=== PATIENT | female | born 1995 | race American Indian/Alaskan Native ===

== ENCOUNTER 2016-11-25 03:05 | Inpatient (IN) | payer MEDICAID ==
[2016-11-25] MEDS ORDERED: LACTATED RINGERS 1,000 ML IV ONE (03:21)
[2016-11-25] MEDS ORDERED: REGLAN IV ONE (03:54)
[2016-11-25] MEDS ORDERED: PITOCin/NS 20 UNIT/1000ML DRIP 20,000 MILLIUNITS/1,000 ML BAG IV ONE (03:54)
[2016-11-25] MEDS ORDERED: BICITRA PO ONE (03:54)
[2016-11-25] MEDS ORDERED: ANCEF/STERILE WATER 2 GM/20 ML 2 GM/20 ML SYRINGE IV ONE (03:54)
[2016-11-25] MEDS ORDERED: PEPCID IV ONE ×2 (03:54)
[2016-11-25] MEDS ORDERED: BICITRA ONE (03:54)
[2016-11-25] MEDS ORDERED: REGLAN ONE (03:54)
[2016-11-25] MEDS ORDERED: PITOCin/NS 20 UNIT/1000ML DRIP 20 UNITS/1,000 ML BAG IV SCH ×2 (04:00→09:00)
[2016-11-25] MEDS ORDERED: LACTATED RINGERS 1,000 ML IV SCH (04:00)
[2016-11-25] MEDS ORDERED: ANCEF/STERILE WATER 2 GM/20 ML 2 GM/20 ML SYRINGE IV NR (04:00)
[2016-11-25 04:15] LABS: Basophils % (Auto) 0.7 % (0.0-1.8); Eosinophils % (Auto) 1.7 % (0.0-4.3); Hemoglobin 11.8 gm/dl (10.1-14.3); White Blood Count 7.8 K/mm3 (4.5-11.0)
--- NOTE | 2016-11-25 04:16 | Anesthesia Consultation ---
Anesthesia Consult and Med Hx Date of service: 11/25/16 - Airway Anesthetic Teeth Evaluation: Good ROM Head & Neck: Adequate Mental/Hyoid Distance: Adequate Mallampati Class: Class II Intubation Access Assessment: Probably Good - Pulmonary Exam CTA: Yes - Cardiac Exam Cardiac Exam: RRR - Pre-Operative Health Status ASA Pre-Surgery Classification: ASA2, Emergency Proposed Anesthetic Plan: Epidural, Spinal - Pulmonary Hx Asthma: No COPD: No Hx Pneumonia: No - Cardiovascular System Hx Hypertension: No - Central Nervous System Hx Seizures: No Hx Psychiatric Problems: No - Endocrine Hx Renal Disease: No Hx End Stage Renal Disease: No Hx Hypothyroidism: No Hx Hyperthyroidism: No - Hematic Hx Anemia: No Hx Sickle Cell Disease: No - Other Systems Hx Alcohol Use: No
--- NOTE | 2016-11-25 04:17 | Anesthesia Day of Surgery ---
Anesthesia Day of Surgery - Day of Surgery Patient Examined: Yes Patient H&P Reviewed: Yes Patient is NPO: Yes (FSP)
--- NOTE | 2016-11-25 04:23 | History and Physical Report ---
History of Present Illness Date of examination: 11/25/16 Date of admission: 11/25/16 03:47 Chief complaint: contractions History of present illness: Pt is a 21 year old -Bulgarian SYLVIA 12/04/16 at 38w5d who presents with painful contractions since 1 am. She denies leakage of fluid or vaginal bleeding. She has had care at [facility] [facility] since 16 wks complicatedby genital herpes without lesion or prodrome, ans GBS positive status. She missed her last OB appt. 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 Family/Genetic History: none Social history: no significant social history - Obstetrical History Expected Date of Delivery: 12/04/16 Actual Gestation: 38 Week(s) 5 Day(s) : 2 Para: 1 Hx # Term Pregnancies: 1 Number of Pregnancies: 0 Spontaneous Abortions: 0 Induced : 0 Number of Living Children: 1 Medications and Allergies Allergies Allergy/AdvReac Type Severity Reaction Status Date / Time No Known Allergies Allergy Verified 05/19/15 13:59 Home Medications Medication Instructions Recorded Confirmed Last Taken Type Vit W-Ca,Fe,FA(<1 mg) 1 each PO DAILY 05/19/15 09/02/15 09/01/15 History [ Vitamins] oxyCODONE /ACETAMINOPHEN [Percocet 1 tab PO Q6HR PRN #40 tablet 09/02/15 Unknown Rx 5/325] Docusate Sodium [Colace] 100 mg PO BID PRN #60 capsule 09/04/15 Unknown Rx Ibuprofen [Motrin] 800 mg PO Q8HR PRN #60 tablet 09/04/15 Unknown Rx Active Meds: Active Medications Lactated Ringer's (Lactated Ringers) 1,000 mls @ 999 mls/hr IV BOLUS ONE Stop: 11/25/16 04:21 Cefazolin Sodium (Ancef/Sterile Water 2 Gm/20 Ml) 2 gm in 20 mls @ 80 mls/hr IV PREOP NR PRN Reason: Protocol Stop: 11/25/16 23:45 Lactated Ringer's (Lactated Ringers) 1,000 mls @ 2,250 mls/hr IV PREOP ALVINO Stop: 11/26/16 04:27 Oxytocin/Sodium Chloride (Pitocin/Ns 20 Unit/1000ml Drip) 20 units in 1,000 mls @ 0 mls/hr IV TITR ALVINO PRN Reason: As Directed Review of Systems All systems: negative - Vital Signs Vital signs: Vital Signs Temp Pulse Resp BP Pulse Ox 97.7 F 65 18 113/67 100 11/25/16 03:23 11/25/16 03:23 11/25/16 03:23 11/25/16 03:23 11/25/16 03:23 Temp Pulse Resp BP Pulse Ox 97.7 F 68 18 113/67 100 11/25/16 03:23 11/25/16 03:26 11/25/16 03:23 11/25/16 03:26 11/25/16 03:26 - Physical Exam Breasts: Positive: deferred Cardiovascular: Regular rate Abdomen: Positive: soft (gravid ) Genitourinary (Female): Positive: normal external genitalia Uterus: Positive: enlarged (gravid ) Extremities: Positive: normal - Obstetrical FHR: category 2 Uterine Contraction Monitor Mode: External Cervical Dilatation: 3 Uterine Contraction Pattern: Regular Uterine Tone Measurement Phase: Resting Uterine Contraction Intensity: Strong/Firm Results Result Diagrams: 11/25/16 03:35 Abnormal lab results 11/25/16 Range/Units 03:35 [place] % (Auto) 10.3 H (0.0-7.3) % All other labs normal. Assessment and Plan A: IUP at 38w5d Active labor Nonreassuring status Previous x 1 P: Proceed with repeat section and other indicated procedures.
[2016-11-25 04:30] LABS: Hematocrit 35.2 % (30.3-42.9); Mean Corpuscular HGB Conc 33 % (30-34); Mean Corpuscular Hemoglobin 28 pg (28-32); Mean Corpuscular Volume 83 fl (79-97); Platelet Count 281 K/mm3 (140-440); Red Blood Count 4.22 M/mm3 (3.65-5.03); Red Cell Distribution Width 13.6 % (13.2-15.2)
[2016-11-25] MEDS ORDERED: NACL 0.9% IR ONE (04:30)
[2016-11-25] MEDS ORDERED: WATER FOR IRRIG STERILE IR ONE (04:30)
[2016-11-25] MEDS ORDERED: DEMEROL ONE (04:50)
[2016-11-25] MEDS ORDERED: LACTATED RINGERS 1,000 ML ONE (04:58)
[2016-11-25] MEDS ORDERED: MORPHINE ONE (04:59)
[2016-11-25] MEDS ORDERED: VERSED ONE (04:59)
[2016-11-25] MEDS ORDERED: XYLOCAINE MPF 2% ONE (05:29)
[2016-11-25] MEDS ORDERED: ZOFRAN ONE (05:30)
[2016-11-25 05:32] LABS: Urine Drugs of Abuse Note Disclamer
--- NOTE | 2016-11-25 05:51 | Procedure Note ---
OB Delivery Note - Delivery Date of Delivery: 11/25/16 Surgeon: KALI CAMILO Estimated blood loss: other (700 mL) - Section Preop diagnosis: repeat , nonreassuring FHR tracing Postop diagnosis: same section procedure: section, repeat low transverse Disposition: PACU Complications: none Narrative: Please see operative note. - A at 1 minute: 8 at 5 minutes: 9 Gender: Female (2977g (6lb 9oz) @ 458 am)
--- NOTE | 2016-11-25 06:01 | Operative Report ---
Operative Report Operative Report: Date of procedure: November 25, 2016 Preoperative diagnosis: 1) IUP at 38w5d 2) Previous x 1 3) Labor 4) Nonreassuring heart tones Postoperative diagnosis: Same Procedure: Repeat low transverse section Surgeon: Patricia Wong M.D. Anesthesia: Spinal-Epidural Findings: 1) Viable female , Apgars 8 and 9, weight 2977g, (6 lb 9 oz) 2) Normal-appearing uterus ovaries and tubes Estimated blood loss: 700 mL IV fluids: 2000 mL Urine output: 200 mL, clear at the end of the procedure Drains: Larry to gravity Specimens: Placenta to pathology Complications: None. Counts correct x 3 Disposition: Stable to PACU Indication for procedure: Pt is a 21 year old -Burkinan female at 38w5d with a h/o previous x 1 presents in labor and with absent variability on NST, which improved to baseline 130s with minimal variability. The decision was made to proceed with repeat section. Operation in detail: After the risks, benefits, alternatives and complications were explained to the patient she gave informed consent for the procedure. She was subsequently taken to the operating room where spinal-epidural anesthesia was noted to be adequate. She was subsequently placed in the dorsal supine position with leftward tilt and prepped and draped in a normal sterile fashion. heart tones were noted to be in the 130s prior to incision. A timeout was performed. A Pfannenstiel skin incision was made with the knife and carried down to the layer of the fascia with the Bovie. The fascia was incised in the midline and the fascial incision was extended bilaterally with the Bovie. Attention was then turned to the superior aspect of the incision which was grasped with two Kochers, tented up, and dissected off the rectus muscles. Attention was then turned to the inferior aspect of the incision which was grasped with two Kochers , tented up and dissected off the rectus muscles. The rectus muscles were then in the midline and partially transected for adequate visualization. The peritoneum was then entered bluntly. The peritoneal incision was extended with good visualization of the bladder. The peritoneal incision was then stretched. The bladder blade was placed. The vesicouterine peritoneum was grasped with smooth pickups and incised with Metzenbaum scissors. Metzenbaum scissors were used to extend the incision bilaterally. The bladder flap was then created digitally and the bladder blade was replaced. A transverse incision was made in the lower uterine segment with a knife and extended bilaterally with the bandage scissors. The head was delivered without difficulty followed by shoulders and body. was bulb suctioned at delivery. The cord was clamped and cut and the was handed to NICU staff in attendance. Cord blood was collected. The placenta was then delivered manually. The uterus was then exteriorized and cleared of all clots and debris. The hysterotomy was then reapproximated with 0 Vicryl in a running locked fashion. A second layer of the same suture was used in imbricating fashion. The hysterotomy was inspected and hemostasis was noted. The gutters were irrigated and cleared of all clots and debris. The hysterotomy was again inspected and noted to be hemostatic. Surgicel was placed over the hysterotomy. Interceed was placed over the anterior surface of the uterus. The peritoneum was reapproximated with 2-0 Vicryl in a running fashion. The rectus muscles were then reapproximated with 2-0 Vicryl in an interrupted fashion and covered with Surgicel. The fascia was reapproximated with 0 Vicryl in a running fashion. The subcutaneous tissue was reapproximated with 3-0 Vicryl in a running fashion. The skin was reapproximated with 4-0 Vicryl in a subcuticular fashion. The incision was then covered with steri strips and a pressure dressing. The procedure was then ended. The patient tolerated the procedure well and was taken to the PACU in stable condition. All instrument, lap, and needle counts were correct 3.
[2016-11-25] MEDS ORDERED: DILAUDID IV PRN ×2 (06:14)
[2016-11-25] MEDS ORDERED: NARCAN 0.4 MG/1 ML IV PRN ×2 (06:14→08:00)
--- NOTE | 2016-11-25 06:14 | Post Anesthesia Evaluation ---
- Post Anesthesia Evaluation Patient Participated: Yes Airway Patent: Yes Stable Respiratory Function: Yes Temp > 96.8F: Yes Pain Manageable: Yes Adequeate Hydration: Yes Anesthesia Complications: No Block Receding Appropriately: Yes
[2016-11-25] MEDS ORDERED: SODIUM CHLORIDE FLUSH SYRINGE 10 ML IV NR (07:51)
[2016-11-25] MEDS ORDERED: ANCEF/NS 1 GM/50 ML 1 GM/50 ML BAG IV SCH ×2 (07:51→19:00)
[2016-11-25] MEDS ORDERED: D5LR 1,000 ML IV SCH (07:51)
[2016-11-25] MEDS ORDERED: TUCKS PAD TP PRN (07:51)
[2016-11-25] MEDS ORDERED: LANSINOH TP PRN (08:00)
[2016-11-25] MEDS ORDERED: TYLENOL PO PRN (08:00)
[2016-11-25] MEDS ORDERED: ZOFRAN IV PRN (08:00)
[2016-11-25] MEDS ORDERED: MYLICON PO PRN (08:00)
[2016-11-25] MEDS ORDERED: MORPHINE IV PRN ×2 (08:00)
[2016-11-25] MEDS: TORADOL IV PRN ×2 (08:52→16:19)
[2016-11-25] MEDS ORDERED: NEO SYNEPHRINE/NS Syringe(OR USE) IV ONE (17:00)
[2016-11-25] MEDS: FEOSOL PO SCH ×2 (17:42→22:07)
[2016-11-25] MEDS: PERCOCET 5/325 PO PRN (20:18)
[2016-11-25 20:49] LABS: Hematocrit 33.3 % (30.3-42.9); Hemoglobin 11.1 gm/dl (10.1-14.3)
[2016-11-26] MEDS: PERCOCET 5/325 PO PRN ×4 (04:47→17:06)
[2016-11-26] MEDS: MOTRIN PO PRN ×2 (05:44→20:36)
[2016-11-26] MEDS ORDERED: BOOSTRIX IM ONE (06:02)
--- NOTE | 2016-11-26 08:47 | Progress Note ---
Assessment and Plan - Patient Problems (1) delivery delivered Current Visit: No Status: Acute Plan to address problem: patient doing well routine postoperative care Subjective - Subjective Date of service: 11/26/16 Interval history: Patient experiencing minor cramping. She is tolerating a regular diet and voiding spontaneously. Patient reports: appetite normal, voiding normally, pain well controlled [place]: doing well Objective - Vital Signs Latest vital signs: Vital Signs Temp Pulse Resp BP 11/26/16 05:44 20 11/26/16 05:15 98.4 F 70 18 131/78 11/26/16 04:47 18 11/26/16 00:00 98.8 F 67 18 125/78 11/25/16 20:18 20 11/25/16 20:00 98.2 F 65 18 105/61 11/25/16 16:00 98.0 F 59 L 20 120/70 11/25/16 12:00 98.5 F 59 L 18 132/87 Intake and Output 11/25/16 11/26/16 11/26/16 22:59 06:59 14:59 Intake Total 1140 Output Total 1100 1600 Balance 40 -1600 Intake: IV 900 PITOCin/NS 20 UNIT/1000ML 900 DRIP 20 units In 1,000 ml @ As Directed IV TITR ALVINO Rx#:[id number] Oral 240 Output: Urine 1100 1600 Indwelling Catheter 300 Void 800 1600 Other: Total, Intake Amount 240 Total, Output Amount 800 900 # Voids Void 1 1 - Exam Abdomen: Present: normal appearance, soft
[2016-11-26] MEDS: MILK OF MAGNESIA PO SCH ×3 (09:33→22:09)
--- NOTE | 2016-11-26 10:35 | Progress Note ---
Subjective Date of service: 11/26/16 Interval history: 1st POD after Patient in in the bed, comfortable. Pain is well controlled with pain meds. Ambulated well. No residual neurological deficit. No significant pruritus. No anesthesia complications Objective - Constitutional Vitals: Vital Signs - 12hr 11/26/16 11/26/16 11/26/16 00:00 04:47 05:15 Temperature 98.8 F 98.4 F Pulse Rate 67 70 Respiratory 18 18 18 Rate Blood Pressure 125/78 131/78 11/26/16 11/26/16 05:44 08:40 Temperature 97.8 F Pulse Rate 71 Respiratory 20 20 Rate Blood Pressure 109/63 - Labs CBC & Chem 7: 11/25/16 20:16
[2016-11-26] MEDS: FEOSOL PO SCH ×2 (11:11→22:06)
[2016-11-26] MEDS ORDERED: M-M-R II VACCINE SUB-Q ONE (12:00)
[2016-11-26] MEDS: ANTIBIOTIC OINT TP SCH ×2 (12:03→22:07)
[2016-11-27] MEDS: PERCOCET 5/325 PO PRN ×3 (01:37→14:35)
[2016-11-27] MEDS: MILK OF MAGNESIA PO SCH ×2 (04:03→09:18)
[2016-11-27 07:58] VITALS: BP 114/72
[2016-11-27] MEDS: FEOSOL PO SCH (09:16)
[2016-11-27] MEDS: ANTIBIOTIC OINT TP SCH (09:17)
--- NOTE | 2016-11-27 09:42 | Progress Note ---
Assessment and Plan A: POD#2 s/p repeat section P: Discharge today with followup in 2 weeks. Subjective - Subjective Date of service: 11/27/16 Principal diagnosis: s/p repeat at term Interval history: No overnight events Patient reports: appetite normal, voiding normally, pain well controlled, flatus , bowel movement, ambulating normally, no nauseated [place]: doing well Objective - Vital Signs Latest vital signs: Vital Signs Temp Pulse Resp BP 11/27/16 07:30 98.2 F 65 20 114/72 11/27/16 01:37 18 11/27/16 00:00 98.6 F 76 18 102/64 11/26/16 20:36 20 11/26/16 17:15 98.2 F 79 20 122/69 Intake and Output 11/26/16 11/27/16 11/27/16 22:59 06:59 14:59 Intake Total 240 600 Balance 240 600 Intake: Oral 240 600 Other: Total, Intake Amount 240 240 # Voids Void 1 2 # Bowel Movements 2 - Exam Breasts: Present: deferred Cardiovascular: Present: Regular rate Lungs: Present: Clear to auscultation Abdomen: Present: soft (obese ), distention (mild ), normal bowel sounds Uterus: Present: fundal height below umbilicus Extremities: Present: normal Incision: Present: intact
--- NOTE | 2016-11-27 13:48 | Discharge Summary ---
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 Episiotomy: none Laceration: none Incision: intact Other procedures: none complications: none Discharge diagnosis: IUP at term delivered baby: female Hospital course: Pt tolerated section well. Her postoperative course was uncomplicated and she met discharge criteria on POD#2. Condition at discharge: Stable Disposition: DC-01 TO HOME OR SELFCARE - Discharge Diagnoses (1) Term of female Status: Acute (2) Obesity (BMI 30-39.9) Status: Acute (3) delivery delivered Status: Acute Plan - Discharge Medications Prescriptions: Ferrous Sulfate [Feosol 325 MG tab] 325 mg PO BID #60 tablet Ibuprofen [Motrin] 800 mg PO Q8HR PRN #30 tablet PRN Reason: Pain oxyCODONE /ACETAMINOPHEN [Percocet 5/325] 1 tab PO Q6HR PRN #40 tablet PRN Reason: Pain - Provider Discharge Summary Activity: routine, no sex for 6 weeks, no heavy lifting 4 weeks, no strenuous exercise Diet: routine Instructions: routine Additional instructions: [] Smoking cessation referral if applicable(refer to patient education folder for contact #) [] Refer to [facility]'s [facility] Booklet Call your doctor immediately for: * Fever > 100.5 * Heavy vaginal bleeding ( >1 pad per hour) * Severe persistent headache * Shortness of breath * Reddened, hot, painful area to leg or breast * Drainage or odor from incision. * Keep incision clean and dry at all times and follow doctor's instructions regarding bathing/showering - Follow up plan Follow up: KALI CAMILO MD [Primary Care Provider] - 12/09/16 (incision check - please call for appt)
[2016-11-27] MEDS: MOTRIN PO PRN (14:34)
== END 2016-11-27 15:45 | disposition home or self-care (01) | DRG 765 ==
LOC: TRG 03:05 → APU 03:47 → OB 07:46
PROVIDERS: ADMIT Obstetrics & Gynecology; ATTEND Obstetrics & Gynecology
PROC: 10D00Z1 Extraction of Products of Conception, Low, Open Approach (ICD-10-PCS; principal; 2016-11-25)
PROC: 3E0234Z Introduction of Serum, Toxoid and Vaccine into Muscle, Percutaneous Approach (ICD-10-PCS; 2016-11-26)
DX: O76 Abnormality in fetal heart rate and rhythm complicating labor and delivery (principal); O98.32 Other infections with a predominantly sexual mode of transmission complicating childbirth; O34.211 Maternal care for low transverse scar from previous cesarean delivery; E66.9 Obesity, unspecified; O99.214 Obesity complicating childbirth; A60.09 Herpesviral infection of other urogenital tract; O99.824 Streptococcus B carrier state complicating childbirth; Z3A.38 38 weeks gestation of pregnancy; Z37.0 Single live birth; Z68.35 Body mass index [BMI] 35.0-35.9, adult; Z23 Encounter for immunization
CPT/HCPCS: 36415; 80307; 85014; 85018; 85025; 86850; 86900; 86901; 88307; 90471; 90715; 99211; A6250; G0463; J0690; J1885; J2175; J2250; J2270; J2370; J2405; J2590; J2765; J7120; J7121

== ENCOUNTER 2018-11-20 09:21 | Emergency (ER) | payer MEDICAID ==
[2018-11-20 09:26] VITALS: BP 118/93
[2018-11-20 10:02] LABS: Basophils % (Auto) 0.7 % (0.0-1.8); Eosinophils # (Auto) 0.2 K/mm3 (0.0-0.4); Eosinophils % (Auto) 3.2 % (0.0-4.3); Hematocrit 42.4 % (30.3-42.9); Lymphocytes # (Auto) 2.5 K/mm3 (1.2-5.4); Lymphocytes % (Auto) 47.8 % (13.4-35.0); Mean Corpuscular HGB Conc 33 % (30-34); Mean Corpuscular Volume 86 fl (79-97); Monocytes # (Auto) 0.4 K/mm3 (0.0-0.8); Monocytes % (Auto) 7.5 % (0.0-7.3); Platelet Count 268 K/mm3 (140-440); Red Blood Count 4.97 M/mm3 (3.65-5.03); Red Cell Distribution Width 14.6 % (13.2-15.2)
[2018-11-20 10:31] LABS: Alanine Aminotransferase 18 units/L (7-56); Albumin 4.5 g/dL (3.9-5); BUN/Creatinine Ratio 16; Blood Urea Nitrogen 11 mg/dL (7-17); Calcium 9.8 mg/dL (8.4-10.2); Hemolysis Index 1
[2018-11-20] MEDS ORDERED: ZOFRAN IV ONE (10:34)
[2018-11-20] MEDS ORDERED: NACL 0.9% 1000 ML 1,000 ML IV ONE (10:34)
[2018-11-20 11:49] LABS: Bilirubin,Urine NEG (Negative); Blood,Urine NEG (Negative); Color,Urine Yellow (Yellow); Mucus,Urine 3+ /HPF; Protein,Urine <15 mg/dL mg/dL (Negative); Urobilinogen,Urine < 2.0 mg/dL (<2.0); WBC,Urine < 1.0 /HPF (0.0-6.0)
--- NOTE | 2018-11-20 12:00 | Emergency Department Report ---
ED Abdominal Pain HPI - General Chief Complaint: Abdominal Pain Stated Complaint: ABD PAIN/VOMITING Time Seen by Provider: 11/20/18 10:33 Source: patient Mode of arrival: Wheelchair Limitations: No Limitations - History of Present Illness MD Complaint: abdominal pain -: Gradual Location: diffuse Radiation: none Migration to: no migration Severity scale (0 -10): 1 Quality: aching Consistency: intermittent Improves With: nothing Worsens With: nothing Associated Symptoms: nausea, vomiting. denies: diarrhea, fever, chills, constipation, dysuria, hematemesis, hematochezia, melena, hematuria, anorexia, syncope - Related Data Home Medications Medication Instructions Recorded Confirmed Last Taken Vit Calc,Iron,Folic 1 each PO DAILY 05/19/15 11/25/16 11/24/16 [ Vitamins] Previous Rx's Medication Instructions Recorded Last Taken Type oxyCODONE /ACETAMINOPHEN [Percocet 1 tab PO Q6HR PRN #40 tablet 09/02/15 Unknown Rx 5/325] Docusate Sodium [Colace] 100 mg PO BID PRN #60 capsule 09/04/15 Unknown Rx Ibuprofen [Motrin] 800 mg PO Q8HR PRN #60 tablet 09/04/15 Unknown Rx Ferrous Sulfate [Feosol 325 MG tab] 325 mg PO BID #60 tablet 11/25/16 Unknown Rx Ibuprofen [Motrin] 800 mg PO Q8HR PRN #30 tablet 11/25/16 Unknown Rx oxyCODONE /ACETAMINOPHEN [Percocet 1 tab PO Q6HR PRN #40 tablet 11/25/16 Unknown Rx 5/325] Ondansetron [Zofran Odt] 4 mg PO Q8HR PRN #9 tab.rapdis 11/20/18 Unknown Rx Allergies Allergy/AdvReac Type Severity Reaction Status Date / Time No Known Allergies Allergy Verified 05/19/15 13:59 ED Review of Systems ROS: Stated complaint: ABD PAIN/VOMITING Other details as noted in HPI Other: GENERAL: No weight change, fatigue, fever, chills, or night sweats SKIN: No changes in skin or hair, no itching, no rashes, no jaundice HEAD: No trauma, headache, or visual changes EYES: No blurriness, tearing, itching, acute visual loss, conjunctival discoloration, or scleral icterus EARS: No hearing loss, tinnitus, vertigo, or earache NOSE: No rhinorrhea, stuffiness, sneezing, itching, or epistaxis MOUTH: No bleeding gums, hoarseness, sore throat, or swelling CARDIAC: No new murmur, chest pain, palpitations, dyspnea on exertion, orthopnea, PND, or edema RESPIRATORY: No shortness of breath, wheeze, cough, sputum production, hemoptysis, pneumonia, asthma, bronchitis, or emphysema GI: Abdominal pain, n/v. No dysphagia, diarrhea, constipation, hematemesis, melena, hematochezia URINARY: No frequency, urgency, polyuria, dysuria, hematuria, or incontinence MUSCULOSKELETAL: No muscle weakness, joint stiffness, decrease in range of motion, redness, swelling NEUROLOGIC: No headache, loss of sensation, numbness, tingling, tremors, weakness, paralysis, seizures HEMATOLOGIC: No anemia, easy bruising, bleeding, petechiae, or purpura ENDOCRINE: No hot or cold intolerance, sweating, polyuria, polydipsia or, polyphagia no thyroid problems PSYCHIATRIC: No change in mood, no anxiety, no depression ED Past Medical Hx - Past Medical History Previous Medical History?: No Hx Hypertension: No Hx Congestive Heart Failure: No Hx Diabetes: No Hx Deep Vein Thrombosis: No Hx Renal Disease: No Hx Sickle Cell Disease: No Hx Seizures: No Hx Asthma: No Hx COPD: No Hx HIV: No - Surgical History Past Surgical History?: Yes Additional Surgical History: d&c - Social History Smoking Status: Current Every Day Smoker Substance Use Type: None - Medications Home Medications: Home Medications Medication Instructions Recorded Confirmed Last Taken Type Vit Calc,Iron,Folic 1 each PO DAILY 05/19/15 11/25/16 11/24/16 History [ Vitamins] oxyCODONE /ACETAMINOPHEN [Percocet 1 tab PO Q6HR PRN #40 tablet 09/02/15 11/25/16 Unknown Rx 5/325] Docusate Sodium [Colace] 100 mg PO BID PRN #60 capsule 09/04/15 11/25/16 Unknown Rx Ibuprofen [Motrin] 800 mg PO Q8HR PRN #60 tablet 09/04/15 11/25/16 Unknown Rx Ferrous Sulfate [Feosol 325 MG tab] 325 mg PO BID #60 tablet 11/25/16 Unknown Rx Ibuprofen [Motrin] 800 mg PO Q8HR PRN #30 tablet 11/25/16 Unknown Rx oxyCODONE /ACETAMINOPHEN [Percocet 1 tab PO Q6HR PRN #40 tablet 11/25/16 Unknown Rx 5/325] Ondansetron [Zofran Odt] 4 mg PO Q8HR PRN #9 tab.rapdis 11/20/18 Unknown Rx ED Physical Exam - General Limitations: No Limitations - Other Other exam information: GENERAL: Patient in no acute distress HEAD: Normocephalic, atraumatic EYES: PERRLA, EOM intact, no scleral icterus, no conjunctival hemorrhage, visual rooney and acuity wnl NOSE: No tenderness, discharge, sinus tenderness MOUTH: No erythema, bleeding, exudate HEART: Regular rate and rhythm, no murmur, S1-S2 are auscultated, pulses are symmetric LUNGS: No respiratory distress. Bilateral breath sounds, No tachypnea, No retractions, No wheezing, rales, rhonchi ABDOMEN: Normal bowel sounds, abdomen soft, no tenderness, no rebound, no guarding, no distention, no masses, no CVA tenderness MUSCULOSKELETAL: Normal joint range of motion, no redness, no swelling, no tenderness NEUROLOGIC: GCS 15, Alert and Oriented x3, Cranial nerves intact, normal sensation, normal strength, no cerebellar deficit, NIHSS 0 PSYCHIATRIC: No homicidal or suicidal ideation, no anxiety, no depression, no hallucinations SKIN: Skin is warm and dry, no wounds, no rashes ED Course Vital Signs 11/20/18 09:25 Temperature 98.0 F Pulse Rate 60 Respiratory 18 Rate Blood Pressure 118/93 O2 Sat by Pulse 100 Oximetry ED Medical Decision Making - Lab Data Result diagrams: 11/20/18 09:46 11/20/18 09:46 Laboratory Last Values WBC 5.2 K/mm3 (4.5-11.0) 11/20/18 09:46 RBC 4.97 M/mm3 (3.65-5.03) 11/20/18 09:46 Hgb 14.0 gm/dl (10.1-14.3) 11/20/18 09:46 Hct 42.4 % (30.3-42.9) 11/20/18 09:46 MCV 86 fl (79-97) 11/20/18 09:46 MCH 28 pg (28-32) 11/20/18 09:46 MCHC 33 % (30-34) 11/20/18 09:46 RDW 14.6 % (13.2-15.2) 11/20/18 09:46 Plt Count 268 K/mm3 (140-440) 11/20/18 09:46 Lymph % (Auto) 47.8 % (13.4-35.0) H 11/20/18 09:46 [place] % (Auto) 7.5 % (0.0-7.3) H 11/20/18 09:46 Eos % (Auto) 3.2 % (0.0-4.3) 11/20/18 09:46 Baso % (Auto) 0.7 % (0.0-1.8) 11/20/18 09:46 Lymph # 2.5 K/mm3 (1.2-5.4) 11/20/18 09:46 [place] # 0.4 K/mm3 (0.0-0.8) 11/20/18 09:46 Eos # 0.2 K/mm3 (0.0-0.4) 11/20/18 09:46 Baso # 0.0 K/mm3 (0.0-0.1) 11/20/18 09:46 Seg Neutrophils % 40.8 % (40.0-70.0) 11/20/18 09:46 Seg Neutrophils # 2.1 K/mm3 (1.8-7.7) 11/20/18 09:46 Sodium 141 mmol/L (137-145) 11/20/18 09:46 Potassium 3.8 mmol/L (3.6-5.0) 11/20/18 09:46 Chloride 104.6 mmol/L (98-107) 11/20/18 09:46 Carbon Dioxide 25 mmol/L (22-30) 11/20/18 09:46 15 mmol/L 11/20/18 09:46 BUN 11 mg/dL (7-17) 11/20/18 09:46 0.7 mg/dL (0.7-1.2) 11/20/18 09:46 Estimated GFR > 60 ml/min 11/20/18 09:46 16 % 11/20/18 09:46 Glucose 107 mg/dL (65-100) H 11/20/18 09:46 Calcium 9.8 mg/dL (8.4-10.2) 11/20/18 09:46 0.50 mg/dL (0.1-1.2) 11/20/18 09:46 AST 15 units/L (5-40) 11/20/18 09:46 ALT 18 units/L (7-56) 11/20/18 09:46 69 units/L (35-129) 11/20/18 09:46 7.4 g/dL (6.3-8.2) 11/20/18 09:46 4.5 g/dL (3.9-5) 11/20/18 09:46 1.6 % 11/20/18 09:46 31 units/L (13-60) 11/20/18 09:46 HCG, Qual Negative (Negative) 11/20/18 09:46 Yellow (Yellow) 11/20/18 Unknown Clear (Clear) 11/20/18 Unknown 5.0 (5.0-7.0) 11/20/18 Unknown Ur Specific [place] 1.021 (1.003-1.030) 11/20/18 Unknown <15 mg/dl mg/dL (Negative) 11/20/18 Unknown Neg mg/dL (Negative) 11/20/18 Unknown 20 mg/dL (Negative) 11/20/18 Unknown Neg (Negative) 11/20/18 Unknown Neg (Negative) 11/20/18 Unknown Neg (Negative) 11/20/18 Unknown < 2.0 mg/dL (<2.0) 11/20/18 Unknown Ur Leukocyte Esterase Neg (Negative) 11/20/18 Unknown < 1.0 /HPF (0.0-6.0) 11/20/18 Unknown 2.0 /HPF (0.0-6.0) 11/20/18 Unknown U Epithel Cells (Auto) 1.0 /HPF (0-13.0) 11/20/18 Unknown 3+ /HPF 11/20/18 Unknown - Medical Decision Making Patient comfortable. Updated with results. Plan discharge with outpatient follow up. Return if any worsening. Critical care attestation.: If time is entered above; I have spent that time in minutes in the direct care of this critically ill patient, excluding procedure time. ED Disposition Clinical Impression: Abdominal pain Qualifiers: Abdominal location: unspecified location Qualified Code(s): R10.9 - Unspecified abdominal pain Nausea & vomiting Qualifiers: Vomiting type: unspecified Vomiting Intractability: unspecified Qualified Code(s): R11.2 - Nausea with vomiting, unspecified Disposition: DC-01 TO HOME OR SELFCARE Is pt being admited?: No Condition: Stable Instructions: Acute Nausea and Vomiting (ED), Abdominal Pain (ED) Prescriptions: Ondansetron [Zofran Odt] 4 mg PO Q8HR PRN #9 tab.rapdis PRN Reason: Nausea Referrals: PRIMARY CARE,MD [Primary Care Provider] - 2-3 Days [facility] [Outside] - as needed Forms: Work/School Release Form(ED) Time of Disposition: 11:59
== END 2018-11-20 12:13 | disposition home or self-care (01) ==
LOC: ED 09:21
DX: R10.9 Unspecified abdominal pain (principal); R11.2 Nausea with vomiting, unspecified; F17.200 Nicotine dependence, unspecified, uncomplicated; Z79.899 Other long term (current) drug therapy
CPT/HCPCS: 36415; 80053; 81001; 83690; 84703; 85025; 96361; 96374; 99284; J2405; J7030